=== PATIENT | female | born 1980 | race Caucasian/White ===

== ENCOUNTER 2018-07-01 12:49 | Emergency (ER) | payer SELFPAY ==
[~2018-07-01] VITALS: Ht 160 cm; Wt 72.6 kg
[2018-07-01 12:49] VITALS: BP 155/101
[2018-07-01] MEDS ORDERED: MORPHINE SULFATE 4 MG/ML VIAL. IV ONE (13:15)
[2018-07-01] MEDS ORDERED: ONDANSETRON PF 4 MG/2 ML VIAL. IV ONE (13:15)
[2018-07-01] MEDS ORDERED: IV NORMAL SALINE 1000ML BAG 1,000 ML IV ONE (13:15)
[2018-07-01 13:26] LABS: BILIRUBIN,URINE NEGATIVE (NEG); CLARITY,URINE CLEAR; COLOR,URINE YELLOW; NITRITE,URINE POSITIVE (NEG); PH,URINE 5.5; PROTEIN,URINE NEGATIVE (NEG-TRACE); UROBILINOGEN,URINE 0.2 mg/dL (0.2 mg/dL)
[2018-07-01 13:30] LABS: BASO # 0.1 x10^3/uL (0.0-0.2); BASO % 1 % (0-3); EOS # 0.2 x10^3/uL (0.0-0.7); EOS % 2 % (0-3); HEMATOCRIT 46.3 % (36.0-47.0); HEMOGLOBIN 15.4 g/dL (12.0-15.5); LYMPH # 2.1 x10^3/uL (1.0-4.8); LYMPH % 18 % (24-48); MEAN CORPUSCULAR HEMOGLOBIN 31 pg (25-35); MEAN CORPUSCULAR HGB CONC 33 g/dL (31-37); MEAN CORPUSCULAR VOLUME 92 fL (79-100); MONO # 0.8 x10^3/uL (0.0-1.1); MONO % 7 % (0-9); NEUT # 8.4 x10^3uL (1.8-7.7); NEUT % 72 % (31-73); PLATELET COUNT 275 x10^3/uL (140-400); RED BLOOD COUNT 5.01 x10^6/uL (3.50-5.40); RED CELL DISTRIBUTION WIDTH 14.2 % (11.5-14.5); WHITE BLOOD COUNT 11.7 x10^3/uL (4.0-11.0)
[2018-07-01 13:32] LABS: BARBITURATES NEG (NEG); BENZODIAZEPINES NEG (NEG); CANNABINOIDS NEG (NEG); COCAINE NEG (NEG); METHADONE NEG (NEG); OPIATES NEG (NEG); PHENCYCLIDINE NEG (NEG)
[2018-07-01 13:33] LABS: AMPHETAMINE/METHAMPHETAMINE POS (NEG)
[2018-07-01 13:34] LABS: BACTERIA,URINE MANY /HPF (0-FEW); SQUAMOUS EPITHELIAL CELL,UR MANY /LPF
[2018-07-01 13:39] LABS: CALCIUM 9.3 mg/dL (8.5-10.1); CREATININE 0.9 mg/dL (0.6-1.0); GFR 70.1; POTASSIUM 4.3 mmol/L (3.5-5.1)
[2018-07-01 13:45] LABS: ALBUMIN 3.5 g/dL (3.4-5.0); ALBUMIN/GLOBULIN RATIO 0.7 (1.0-1.7); TOTAL BILIRUBIN 0.2 mg/dL (0.2-1.0); TOTAL PROTEIN 8.2 g/dL (6.4-8.2)
[2018-07-01] MEDS ORDERED: CONTRAST GIVEN. MC PRN (14:00)
[2018-07-01] MEDS ORDERED: IOHEXOL 300 MG/ML 100ML VIAL. IV ONE (14:15)
--- NOTE | 2018-07-01 14:24 | PHYS DOC ---
Past Medical History Past Medical History: No Pertinent History, Hypertension Past Surgical History: Alcohol Use: None Drug Use: Other Adult General Chief Complaint Chief Complaint: ABDOMINAL PAIN HPI HPI Patient is a 37 year old female with a history of hypertension who presents to the ED today complaining of a sharp intermittent 7 out of 10 right-sided abdominal pain that began yesterday. Patient denies any vomiting. Denies any fever. Denies any chance she is . Review of Systems Review of Systems Constitutional: Denies fever or chills [] Eyes: Denies change in visual acuity, redness, or eye pain [] HENT: Denies nasal congestion or sore throat [] Respiratory: Denies cough or shortness of breath [] Cardiovascular: No additional information not addressed in HPI [] GI: Reports right lower quadrant abdominal pain, nausea, vomiting, bloody stools or diarrhea [] : Denies dysuria or hematuria [] Musculoskeletal: Denies back pain or joint pain [] Integument: Denies rash or skin lesions [] Neurologic: Denies headache, focal weakness or sensory changes [] All other systems were reviewed and found to be within normal limits, except as documented in this note. Current Medications Current Medications Current Medications Medications (Trade) Dose Ordered Sig/Zita Start Time Stop Time Status Last Admin Dose Admin Info (CONTRAST GIVEN -- Rx MONITORING) 1 each PRN DAILY PRN 07/01/18 14:00 07/03/18 13:59 Iohexol (Omnipaque 300 Mg/ml) 75 ml 1X ONCE 07/01/18 14:15 07/01/18 14:16 DC Morphine Sulfate (Morphine Sulfate) 4 mg 1X ONCE 07/01/18 13:15 07/01/18 13:16 DC 07/01/18 13:20 4 MG Ondansetron HCl (Zofran) 4 mg 1X ONCE 07/01/18 13:15 07/01/18 13:16 DC 07/01/18 13:19 4 MG Sodium Chloride 1,000 ml @ 1,000 mls/hr 1X ONCE 07/01/18 13:15 07/01/18 14:14 DC 07/01/18 13:19 1,000 MLS/HR Allergies Allergies Allergies Coded Allergies Type Severity Reaction Last Updated Verified No Known Drug Allergies 01/14/14 No Physical Exam Physical Exam Constitutional: Well developed, well nourished, no acute distress, non-toxic appearance. [] HENT: Normocephalic, atraumatic, bilateral external ears normal, oropharynx moist, no oral exudates, nose normal. [] Eyes: PERRLA, EOMI, conjunctiva normal, no discharge. [] Neck: Normal range of motion, no tenderness, supple, no stridor. [] Cardiovascular:Heart rate regular rhythm, no murmur [] Lungs & Thorax: Bilateral breath sounds clear to auscultation [] Abdomen: Bowel sounds normal, soft, no right upper quadrant tenderness, slight right lower quadrant tenderness, negative psoas sign, negative obturator sign, negative Rovsing sign, no guarding, no masses, no pulsatile masses. [] Skin: Warm, dry, no erythema, no rash. [] Back: No tenderness, no CVA tenderness. [] Extremities: No tenderness, no cyanosis, no clubbing, ROM intact, no edema. [] Neurologic: Alert and oriented X 3, normal motor function, normal sensory function, no focal deficits noted. [] Psychologic: Affect normal, judgement normal, mood normal. [] Current Patient Data Vital Signs Vital Signs Date Time Temp Pulse Resp B/P (MAP) Pulse Ox O2 Delivery O2 Flow Rate FiO2 07/01/18 13:20 19 97 Room Air 07/01/18 12:49 97.5 100 155/101 (119) 97.5 Lab Values Laboratory Tests Test 07/01/18 13:00 07/01/18 13:04 07/01/18 13:13 Urine Collection Type Unknown Urine Color Yellow Urine Clarity Clear Urine pH 5.5 Urine Specific Hope 1.025 Urine Protein Negative mg/dL (NEG-TRACE) Urine Glucose (UA) Negative mg/dL (NEG) Urine Ketones (Stick) Negative mg/dL (NEG) Urine Blood Negative (NEG) Urine Nitrite Positive (NEG) Urine Bilirubin Negative (NEG) Urine Urobilinogen Dipstick 0.2 mg/dL (0.2 mg/dL) Urine Leukocyte Esterase Trace (NEG) Urine RBC 1-2 /HPF (0-2) Urine WBC 11-20 /HPF (0-4) Urine Squamous Epithelial Cells Many /LPF Urine Bacteria Many /HPF (0-FEW) Urine Mucus Marked /LPF Urine Opiates Screen Neg (NEG) Urine Methadone Screen Neg (NEG) Urine Barbiturates Neg (NEG) Urine Phencyclidine Screen Neg (NEG) Urine Amphetamine/Methamphetamine Pos (NEG) Urine Benzodiazepines Screen Neg (NEG) Urine Cocaine Screen Neg (NEG) Urine Cannabinoids Screen Neg (NEG) Urine Ethyl Alcohol Neg (NEG) POC Urine HCG, Qualitative Hcg negative (Negative) White Blood Count 11.7 x10^3/uL (4.0-11.0) H Red Blood Count 5.01 x10^6/uL (3.50-5.40) Hemoglobin 15.4 g/dL (12.0-15.5) Hematocrit 46.3 % (36.0-47.0) Mean Corpuscular Volume 92 fL (79-100) Mean Corpuscular Hemoglobin 31 pg (25-35) Mean Corpuscular Hemoglobin Concent 33 g/dL (31-37) Red Cell Distribution Width 14.2 % (11.5-14.5) Platelet Count 275 x10^3/uL (140-400) Neutrophils (%) (Auto) 72 % (31-73) Lymphocytes (%) (Auto) 18 % (24-48) L Monocytes (%) (Auto) 7 % (0-9) Eosinophils (%) (Auto) 2 % (0-3) Basophils (%) (Auto) 1 % (0-3) Neutrophils # (Auto) 8.4 x10^3uL (1.8-7.7) H Lymphocytes # (Auto) 2.1 x10^3/uL (1.0-4.8) Monocytes # (Auto) 0.8 x10^3/uL (0.0-1.1) Eosinophils # (Auto) 0.2 x10^3/uL (0.0-0.7) Basophils # (Auto) 0.1 x10^3/uL (0.0-0.2) Sodium Level 140 mmol/L (136-145) Potassium Level 4.3 mmol/L (3.5-5.1) Chloride Level 104 mmol/L (98-107) Carbon Dioxide Level 25 mmol/L (21-32) Anion Gap 11 (6-14) Blood Urea Nitrogen 22 mg/dL (7-20) H Creatinine 0.9 mg/dL (0.6-1.0) Estimated GFR (Cockcroft-Gault) 70.1 BUN/Creatinine Ratio 24 (6-20) H Glucose Level 85 mg/dL (70-99) Calcium Level 9.3 mg/dL (8.5-10.1) Total Bilirubin 0.2 mg/dL (0.2-1.0) Aspartate Amino Transferase (AST) 14 U/L (15-37) L Alanine Aminotransferase (ALT) 18 U/L (14-59) Alkaline Phosphatase 106 U/L (46-116) Total Protein 8.2 g/dL (6.4-8.2) Albumin 3.5 g/dL (3.4-5.0) Albumin/Globulin Ratio 0.7 (1.0-1.7) L Lipase 125 U/L (73-393) Ethyl Alcohol Level < 10 mg/dL (0-10) Laboratory Tests 07/01/18 13:13 Laboratory Tests 07/01/18 13:13 EKG EKG [] Radiology/Procedures Radiology/Procedures [] Course & Med Decision Making Course & Med Decision Making Pertinent Labs and Imaging studies reviewed. (See chart for details) This is a 37-year-old male patient presenting to the ED today with right lower quadrant abdominal pain since yesterday. Patient signed out AMA before her workup was done. Patient is alert and oriented 4, able to make her own decisions. Risks of leaving AMA. Dragon Disclaimer Dragon Disclaimer This electronic medical record was generated, in whole or in part, using a voice recognition dictation system. Departure Departure Impression: Primary Impression: Abdominal pain Disposition: 07 AGAINST MEDICAL ADVICE Condition: STABLE Referrals: LACI DRISCOLL (PCP) Problem Qualifiers Primary Impression: Abdominal pain Abdominal location: right lower quadrant Qualified Codes: R10.31 - Right lower quadrant pain CELIADOMENICA ROGERS CATARINA Jul 01, 2018 14:24
--- NOTE | 2018-07-01 15:21 | RAD ---
PQRS Compliance Statement: One or more of the following individualized dose reduction techniques were utilized for this examination: 1. Automated exposure control 2. Adjustment of the mA and/or kV according to patient size 3. Use of iterative reconstruction technique CT abdomen/pelvis with contrast 07/01/2018 1:59 PM INDICATION: Right lower quadrant abdominal pain COMPARISON: CT abdomen/pelvis January 14, 2014 TECHNIQUE: Multiple axial CT images of the abdomen and pelvis were obtained after the intravenous administration of 75 mL Omnipaque 300. Coronal and sagittal reformats are provided. FINDINGS: There is bibasilar subsegmental atelectasis. Heart size is within normal limits. Liver, spleen, bilateral adrenal glands, pancreas and gallbladder are normal in appearance. The abdominal aorta is normal in course and caliber. There are no pathologically enlarged lymph nodes in the abdomen and pelvis. There is no abdominal free fluid. There is no free intraperitoneal air. The kidneys enhance symmetrically. 8 mm hypoattenuating lesion in the superior pole the right kidney may represent a simple cyst or angiomyolipoma (-30 Hounsfield units). This finding is too small to characterize. There is no hydronephrosis. There are no suspected calculi within the kidneys, ureters or urinary bladder. Small and large bowel are normal in caliber. There is no evidence for bowel obstruction. There are no pericolonic inflammatory changes. A normal, nondilated appendix is visualized without adjacent inflammatory changes. Tubal ligation clips are identified. Uterus is normal in appearance. Follicular changes are identified in the adnexa bilaterally. Right ovary measures 4.0 x 2 3.0 cm. Left ovary measures 4.7 x 4.0 cm. No significant free fluid is identified within the pelvis. No suspicious osseous abnormality is identified. There is moderate disc height loss at L5-S1 with vacuum disc phenomena. IMPRESSION: 1. No evidence for bowel obstruction or inflammation. Appendix is normal in appearance. 2. 8 mm hypoattenuating lesion in the superior pole the right kidney may represent a simple cyst or angiomyolipoma (-30 Hounsfield units). This finding is too small to characterize. Further characterization with renal ultrasound may be of benefit. 3. No evidence for obstructive uropathy. 4. Follicular changes are identified in the adnexa bilaterally. Electronically signed by: Sindy Nina MD (07/01/2018 3:19 PM) [id number]
== END 2018-07-01 19:18 | disposition left against medical advice (07) ==
LOC: ER 12:49
DX: R10.31 Right lower quadrant pain (principal); R11.2 Nausea with vomiting, unspecified; R19.7 Diarrhea, unspecified; K92.1 Melena; I10 Essential (primary) hypertension; Z98.890 Other specified postprocedural states
CPT/HCPCS: 36415; 74177; 80053; 80307; 81001; 81025; 83690; 85025; 87086; 87186; 96361; 96374; 96375; 99285; G0480; J2270; J2405; J7030; Q9967; 99284-25

== ENCOUNTER 2019-01-17 01:22 | Emergency (ER) | payer SELFPAY ==
[~2019-01-17] VITALS: Ht 170.2 cm; Wt 82.6 kg
[2019-01-17 02:12] VITALS: BP 170/80
[2019-01-17] MEDS ORDERED: HYDROcodone/APAP 5/325MG 1 TAB TABLET PO ONE (02:45)
[2019-01-17] MEDS ORDERED: HYDR-3164 PO (02:54)
--- NOTE | 2019-01-17 02:54 | PHYS DOC ---
Past Medical History Past Medical History: No Pertinent History Past Surgical History: Additional Information: /2 PPD Alcohol Use: Rarely Drug Use: None Adult General Chief Complaint Chief Complaint: FOOT INJURY PAIN HPI HPI Patient is a 38 year old [f__sex] who presents with [] Review of Systems Review of Systems Constitutional: Denies fever or chills [] Eyes: Denies change in visual acuity, redness, or eye pain [] HENT: Denies nasal congestion or sore throat [] Respiratory: Denies cough or shortness of breath [] Cardiovascular: No additional information not addressed in HPI [] GI: Denies abdominal pain, nausea, vomiting, bloody stools or diarrhea [] : Denies dysuria or hematuria [] Musculoskeletal: Denies back pain or joint pain [] Integument: Denies rash or skin lesions [] Neurologic: Denies headache, focal weakness or sensory changes [] Endocrine: Denies polyuria or polydipsia [] All other systems were reviewed and found to be within normal limits, except as documented in this note. Current Medications Current Medications Current Medications Medications (Trade) Dose Ordered Sig/Zita Start Time Stop Time Status Last Admin Dose Admin Acetaminophen/ Hydrocodone Bitart (Lortab 5/325) 1 tab 1X ONCE 01/17/19 02:45 01/17/19 02:46 DC 01/17/19 02:49 1 TAB Allergies Allergies Allergies Coded Allergies Type Severity Reaction Last Updated Verified No Known Drug Allergies 01/14/14 No Physical Exam Physical Exam Constitutional: Well developed, well nourished, no acute distress, non-toxic appearance. [] HENT: Normocephalic, atraumatic, bilateral external ears normal, oropharynx moist, no oral exudates, nose normal. [] Eyes: PERRLA, EOMI, conjunctiva normal, no discharge. [] Neck: Normal range of motion, no tenderness, supple, no stridor. [] Cardiovascular:Heart rate regular rhythm, no murmur [] Lungs & Thorax: Bilateral breath sounds clear to auscultation [] Abdomen: Bowel sounds normal, soft, no tenderness, no masses, no pulsatile masses. [] Skin: Warm, dry, no erythema, no rash. [] Back: No tenderness, no CVA tenderness. [] Extremities: No tenderness, no cyanosis, no clubbing, ROM intact, no edema. [] Neurologic: Alert and oriented X 3, normal motor function, normal sensory function, no focal deficits noted. [] Psychologic: Affect normal, judgement normal, mood normal. [] Current Patient Data Vital Signs Vital Signs Date Time Temp Pulse Resp B/P (MAP) Pulse Ox O2 Delivery O2 Flow Rate FiO2 01/17/19 02:49 20 Room Air 01/17/19 02:12 97.7 101 170/80 (110) 98 97.7 EKG EKG [] Radiology/Procedures Radiology/Procedures [] Course & Med Decision Making Course & Med Decision Making Pertinent Labs and Imaging studies reviewed. (See chart for details) [] Dragon Disclaimer Dragon Disclaimer This electronic medical record was generated, in whole or in part, using a voice recognition dictation system. Departure Departure Impression: Primary Impression: Foot contusion Disposition: HOME, SELF-CARE Condition: STABLE Referrals: LACI DRISCOLL (PCP) PAGE OLIVER II, MD Patient Instructions: Cast Shoe, Crutch Use, [id number], Foot Contusion, [id number] Scripts Hydrocodone/Apap 5-325 (NORCO 5-325 TABLET) 1 Each Tablet 0.5-1 TAB PO PRN Q6HRS PRN for PAIN, #10 TAB 0 Refills Prov: ANA MARIA EPSTEIN DO 01/17/19 Problem Qualifiers Primary Impression: Foot contusion Encounter type: initial encounter Laterality: right Qualified Codes: S90.31XA - Contusion of right foot, initial encounter ANA MARIA EPSTEIN DO Jan 17, 2019 02:54
--- NOTE | 2019-01-17 05:36 | RAD ---
Right foot 3 views. HISTORY: Pain, post blunt trauma 3 views were taken of the right foot. There is not evidence of an acute fracture. There is a bony erosion at the distal end of the proximal phalanx the great toe in a juxta-articular location, gout can have this pattern. There is no other acute osseous abnormality. IMPRESSION: 1. Bony erosion distal end of the proximal phalanx of the right great toe with soft tissue swelling, Gout is a possibility. 2. No fracture or other acute osseous abnormality. Electronically signed by: Sathya Chowdhury MD (01/17/2019 5:32 AM) [facility]
== END 2019-01-17 03:11 | disposition home or self-care (01) ==
LOC: ER 01:22
DX: S90.31XA Contusion of right foot, initial encounter (principal); F17.200 Nicotine dependence, unspecified, uncomplicated; W20.8XXA Other cause of strike by thrown, projected or falling object, initial encounter; Y93.89 Activity, other specified; Y92.89 Other specified places as the place of occurrence of the external cause; Y99.8 Other external cause status
CPT/HCPCS: 73630; 99284

== ENCOUNTER 2019-10-15 22:22 | Emergency (ER) | payer SELFPAY ==
[~2019-10-15] VITALS: Ht 177.8 cm; Wt 63.6 kg
[~2019-10-15 22:22] MED LIST: HYDR-3164 PO
--- NOTE | 2019-10-15 23:35 | RAD ---
EXAM: Sacrum coccyx DATE: 10/15/2019 10:39 PM COMPARISON: No prior INDICATION: Pain s/p fall FINDINGS: Dedicated AP and lateral views of the sacrum/coccyx are negative for acute or subacute fracture. Negative sacro-coccygeal dissociation. Negative SI joint diastasis or degenerative/proliferative changes. Grossly normal bone density. Moderate colonic stool content is seen. IMPRESSION: Normal dedicated views sacrum and coccyx. Electronically signed by: Santos Cespedes MD (10/15/2019 11:32 PM) [facility]
[2019-10-16] MEDS ORDERED: TRAM50TA PO (00:20)
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
[2019-10-16 00:30] VITALS: BP 120/76
== END 2019-10-16 00:30 | disposition home or self-care (01) ==
LOC: ER 22:22
DX: S39.92XA Unspecified injury of lower back, initial encounter (principal); F17.200 Nicotine dependence, unspecified, uncomplicated; V29.88XA Motorcycle rider (driver) (passenger) injured in other specified transport accidents, initial encounter; Y92.488 Other paved roadways as the place of occurrence of the external cause; Y93.89 Activity, other specified; Y99.8 Other external cause status
CPT/HCPCS: 72220; 99283

== ENCOUNTER 2020-05-14 00:34 | Emergency (ER) | payer SELFPAY ==
[~2020-05-14] VITALS: Ht 167.6 cm; Wt 88.6 kg
[~2020-05-14 00:34] MED LIST changes: +TRAM50TA PO
[2020-05-14 00:49] VITALS: BP 179/106
[2020-05-14] MEDS ORDERED: traMADol 50 MG TABLET ONE (01:05)
[2020-05-14] MEDS ORDERED: TRAM50TA PO (01:23)
--- NOTE | 2020-05-14 01:23 | PHYS DOC ---
Past Medical History Past Medical History: Hypertension Past Surgical History: , Tubal ligation Smoking Status: Current Every Day Smoker Additional Information: 0.5ppd Alcohol Use: None Drug Use: None General Adult EDM: Chief Complaint: ANKLE PROBLEM HPI: HPI: Patient is a 39 year old female presents with report of left ankle pain after fall off of porch. Patient reports occurred approximately 2 hours prior to arrival. Denies head trauma. Denies neck pain. Patient reports swelling and bruising to lateral aspect. Patient reports pain with ambulation or bearing weight. Denies numbness or tingling. Denies use of blood thinners. Denies other injury. Review of Systems: Review of Systems: Constitutional: Denies fever or chills Musculoskeletal: Reports left lateral ankle pain and swelling Integument: Reports bruising and swelling to left lateral ankle Neurologic: Denies headache, focal weakness or sensory changes Complete systems were reviewed and found to be within normal limits, except as documented in this note. Current Medications: Current Medications Medications (Trade) Dose Ordered Sig/Zita Start Time Stop Time Status Last Admin Dose Admin Tramadol HCl (Ultram) 50 mg STK-MED ONCE 05/14/20 01:05 05/14/20 01:05 DC Allergies: Allergies: Allergies Coded Allergies Type Severity Reaction Last Updated Verified No Known Drug Allergies 01/14/14 No Physical Exam: PE: Constitutional: Well developed, well nourished, no acute distress, non-toxic appearance HENT: Normocephalic, atraumatic Eyes: Conjunctiva normal, no discharge Neck: Normal range of motion, no tenderness, supple Lungs & Thorax: No respiratory distress, equal chest rise and fall Skin: Warm, dry, no erythema, no rash Extremities: Left lateral malleolar tenderness, anterior drawer negative, edema and ecchymosis noted to lateral malleolar area, DP and PT +2, CR < 2 sec Neurologic: Alert and oriented X 3, no focal deficits noted Psychologic: Affect normal, judgment normal Current Patient Data: Vital Signs: Vital Signs Date Time Temp Pulse Resp B/P (MAP) Pulse Ox O2 Delivery O2 Flow Rate FiO2 05/14/20 01:07 94 05/14/20 00:49 97.9 112 20 179/106 (130) Room Air 97.9 EKG: EKG: [] Radiology/Procedures: Radiology/Procedures: PROCEDURE: ANKLE LEFT 3V XR EXAM OF ANKLE_LEFT 3V 05/14/2020 1:18 AM INDICATION: Pain to the lateral malleolus. COMPARISON: None available. TECHNIQUE: 3 views of the left foot are provided. FINDINGS/ IMPRESSION: There is lateral soft tissue swelling. There is an obliquely oriented fracture involving the lateral malleolus with intra-articular extension to the ankle mortise. No disruption of the ankle mortise is identified, but stress views could be of benefit. Tibial plafond and talar dome. Intact. Calcaneus is intact. Electronically signed by: Sindy Nina MD (05/14/2020 1:24 AM) [facility] Course & Med Decision Making: Course & Med Decision Making Pertinent Imaging studies reviewed. (See chart for details) Patient presents with left ankle injury and swelling after mechanical fall off of a porch. Pain addressed. Ice applied. X-ray obtained with findings of nondisplaced distal fibular fracture. Avinash wrap and air splint applied. Crutches provided. Patient stable for discharge with outpatient follow-up with orthopedics. Orthopedic referral provided. Discussed findings and plan with patient, who acknowledges understanding and agreement. Carolyn Disclaimer: Carolyn Disclaimer: This electronic medical record was generated, in whole or in part, using a voice recognition dictation system. Splinting Splinting : Location: Left ankle Pre-Made Type: aircast (ankle) Pre-Proc Neuro Vasc Exam: normal Post-Proc Neuro Vasc Exam: normal, unchanged from pre-exam Departure Departure Impression: Primary Impression: Fracture of distal fibula Qualified Codes: S82.832A - Other fracture of upper and lower end of left fibula, initial encounter for closed fracture Disposition: 01 DC HOME SELF CARE/HOMELESS Condition: STABLE Referrals: NO PCP (PCP) TAMARA HOLDER MD Patient Instructions: Ankle Fracture, [id number], Crutch Use, [id number] Additional Instructions: ICE area 20 min on the leave off next 20 mins. Repeat as needed several times daily for next few days. Take over the counter Tylenol and/or Ibuprofen for pain or discomfort. Scripts Hydrocodone/Apap 5-325 (NORCO 5-325 TABLET) 1 Each Tablet 0.5-1 TAB PO PRN Q6HRS PRN for PAIN for 14 Days, TAB 0 Refills Prov: ANA MARIA EPSTEIN DO 05/14/20 ANA MARIA EPSTEIN DO May 14, 2020 01:23
[2020-05-14] MEDS ORDERED: KETOROLAC 30 MG/ML VIAL. ONE (01:26)
--- NOTE | 2020-05-14 01:26 | RAD ---
XR EXAM OF ANKLE_LEFT 3V 05/14/2020 1:18 AM INDICATION: Pain to the lateral malleolus. COMPARISON: None available. TECHNIQUE: 3 views of the left foot are provided. FINDINGS/ IMPRESSION: There is lateral soft tissue swelling. There is an obliquely oriented fracture involving the lateral malleolus with intra-articular extension to the ankle mortise. No disruption of the ankle mortise is identified, but stress views could be of benefit. Tibial plafond and talar dome. Intact. Calcaneus is intact. Electronically signed by: Sindy Nina MD (05/14/2020 1:24 AM) [facility]
[2020-05-14] MEDS ORDERED: traMADol 50 MG TABLET PO ONE (01:30)
[2020-05-14] MEDS ORDERED: HYDR-3164 PO (01:59)
[2020-05-14] MEDS ORDERED: KETOROLAC 30 MG/ML VIAL. IM ONE (02:00)
== END 2020-05-14 01:45 | disposition home or self-care (01) ==
LOC: ER 00:34
DX: S82.832A Other fracture of upper and lower end of left fibula, initial encounter for closed fracture (principal); R60.0 Localized edema; I10 Essential (primary) hypertension; F17.200 Nicotine dependence, unspecified, uncomplicated; Z98.890 Other specified postprocedural states; Z98.51 Tubal ligation status; W18.39XA Other fall on same level, initial encounter; Y93.89 Activity, other specified; Y92.89 Other specified places as the place of occurrence of the external cause; Y99.8 Other external cause status
CPT/HCPCS: 73610; 96372; 99283; J1885; L4350

== ENCOUNTER 2021-01-12 17:59 | Emergency (ER) | payer MEDICAID ==
[~2021-01-12] VITALS: Ht 170.2 cm; Wt 86.0 kg
--- NOTE | 2021-01-12 19:29 | PHYS DOC ---
Past Medical History Past Medical History: Hypertension Past Surgical History: , Tubal ligation Smoking Status: Current Every Day Smoker Alcohol Use: None Drug Use: None General Adult EDM: Chief Complaint: ANKLE PROBLEM HPI: HPI: Patient is a 40 year old female who present to ER for evaluation of right ankle injury. Patient said she was walking downstairs last night, she slipped and twisted her right ankle. Patient has been able to walk but with lot of pain in her right ankle. Patient denies any pain in her right foot or right knee. Patient denies any head or neck injury, denies any back pain. Review of Systems: Review of Systems: Constitutional: Denies fever or chills. [] Eyes: Denies change in visual acuity. [] HENT: Denies nasal congestion or sore throat. [] Respiratory: Denies cough or shortness of breath. [] Cardiovascular: Denies chest pain or edema. [] GI: Denies abdominal pain, nausea, vomiting, bloody stools or diarrhea. [] : Denies dysuria. [] Musculoskeletal: Positive for right ankle pain and swelling Integument: Denies rash. [] Neurologic: Denies headache, focal weakness or sensory changes. [] Endocrine: Denies polyuria or polydipsia. [] Lymphatic: Denies swollen glands. [] Psychiatric: Denies depression or anxiety. [] Heart Score: C/O Chest Pain: N/A Risk Factors: Risk Factors: DM, Current or recent (<one month) smoker, HTN, HLP, family history of CAD, obesity. Risk Scores: Score 0 - 3: 2.5% MACE over next 6 weeks - Discharge Home Score 4 - 6: 20.3% MACE over next 6 weeks - Admit for Clinical Observation Score 7 - 10: 72.7% MACE over next 6 weeks - Early Invasive Strategies Allergies: Allergies: Allergies Coded Allergies Type Severity Reaction Last Updated Verified No Known Drug Allergies 01/14/14 No Physical Exam: PE: Constitutional: Well developed, well nourished, no acute distress, non-toxic appearance. [] HENT: Normocephalic, atraumatic, bilateral external ears normal, oropharynx moist, no oral exudates, nose normal. [] Eyes: PERRLA, EOMI, conjunctiva normal, no discharge. [] Neck: Normal range of motion, no tenderness, supple, no stridor. [] Cardiovascular:Heart rate regular rhythm, no murmur [] Lungs & Thorax: Bilateral breath sounds clear to auscultation [] Abdomen: Bowel sounds normal, soft, no tenderness, no masses, no pulsatile masses. [] Skin: Warm, dry, no erythema, no rash. [] Back: No tenderness, no CVA tenderness. [] Extremities: right ankle is swelling, tender to palpation, no pain on right foot or right knee. Neurologic: Alert and oriented X 3, normal motor function, normal sensory function, no focal deficits noted. [] Psychologic: Affect normal, judgement normal, mood normal. [] Current Patient Data: Labs: Laboratory Tests Test 01/12/21 19:18 POC Urine HCG, Qualitative Hcg negative (Negative) EKG: EKG: [] Radiology/Procedures: Radiology/Procedures: [][facility] [address] [place] [address] IMAGING REPORT Signed PATIENT: GERMAIN TOWNSEND ACCOUNT: [id number] : 1980 LOCATION: ER AGE: 40 SEX: F EXAM STATUS: REG ER ORD. PHYSICIAN: CHAGO CARLISLE DO REASON: fell, right ankle injured PROCEDURE: ANKLE RIGHT 3V EXAMINATION: Right ankle radiograph. VIEWS: 3 COMPARISON: None INDICATION:40 years, Female, fell, right ankle injury. FINDINGS: No acute fracture, dislocation or subluxation. Ankle mortise and talar dome are intact. There is small well-corticated osseous structure adjacent to the lateral malleolus, likely representing calcification versus old chip fracture. diffuse soft tissue swelling about the ankle, particularly about the lateral malleolus. Small amount of ankle joint effusion. IMPRESSION: No acute osseous process. Diffuse soft tissue swelling about the ankle. Electronically signed by: Candace Hallman MD (01/12/2021 8:04 PM) [facility] DICTATED and SIGNED BY: CANDACE HALLMAN MD DATE: 01/12/[id number] 0 Course & Med Decision Making: Course & Med Decision Making Pertinent Labs and Imaging studies reviewed. (See chart for details) Patient is a 40-year-old female who present to ER due to right ankle injury, x- ray did not show any fracture or dislocation. A walking boot was applied to her right foot and ankle. Patient will be discharged home with pain medication Dragon Disclaimer: Carolyn Disclaimer: This electronic medical record was generated, in whole or in part, using a voice recognition dictation system. Departure Departure Impression: Primary Impression: Right ankle sprain Disposition: HOME / SELF CARE / HOMELESS Condition: STABLE Referrals: NO PCP (PCP) FOLLOW UP WITH YOUR FAMILY DOCTOR THIS WEEK FOR REEVALUATION Patient Instructions: Ankle Sprain, Acute, with Phase I Rehab-SportsMed Additional Instructions: Thank you for visiting our Emergency Department. We appreciate you trusting us with your care. If any additional problems come up don't hesitate to return to visit us. Please follow up with your primary care provider so they can plan additional care if needed and know about the problem that you had. If symptoms worsen come back to the Emergency Department. Any concerning symptoms that start such as chest pain, shortness of air, weakness or numbness on one side of the body, running high fevers or any other concerning symptoms return to the ER. Scripts Tramadol Hcl (TRAMADOL HCL) 50 Mg Tablet 50 MG PO Q6HRS PRN for PAIN, #15 TAB Prov: CHAGO CARLISLE DO 01/12/21 CHAGO CARLISLE DO Jan 12, 2021 19:29
--- NOTE | 2021-01-12 20:07 | RAD ---
EXAMINATION: Right ankle radiograph. VIEWS: 3 COMPARISON: None INDICATION:40 years, Female, fell, right ankle injury. FINDINGS: No acute fracture, dislocation or subluxation. Ankle mortise and talar dome are intact. There is smal l well-corticated osseous structure adjacent to the lateral malleolus, likely representing calcificat ion versus old chip fracture. diffuse soft tissue swelling about the ankle, particularly about the la teral malleolus. Small amount of ankle joint effusion. IMPRESSION: No acute osseous process. Diffuse soft tissue swelling about the ankle. Electronically signed by: Farzad Hallman MD (01/12/2021 8:04 PM) [facility]
[2021-01-12 20:24] VITALS: BP 202/105
[2021-01-12] MEDS ORDERED: HYDROcodone/APAP 5/325MG 1 TAB TABLET PO ONE (20:30)
[2021-01-12] MEDS ORDERED: TRAM50TA PO (21:00)
== END 2021-01-12 21:07 | disposition home or self-care (01) ==
LOC: ER 17:59
DX: S93.401A Sprain of unspecified ligament of right ankle, initial encounter (principal); I10 Essential (primary) hypertension; F17.200 Nicotine dependence, unspecified, uncomplicated; W01.0XXA Fall on same level from slipping, tripping and stumbling without subsequent striking against object, initial encounter; Y93.01 Activity, walking, marching and hiking; Y92.89 Other specified places as the place of occurrence of the external cause; Y99.8 Other external cause status
CPT/HCPCS: 73610; 81025; 99283

== ENCOUNTER 2021-09-15 10:37 | Emergency (ER) | payer MEDICAID ==
[~2021-09-15] VITALS: Ht 170.2 cm; Wt 88.5 kg
[2021-09-15 11:00] VITALS: BP 205/103
[2021-09-15] MEDS ORDERED: PENI500T PO (11:40)
--- NOTE | 2021-09-15 11:40 | PHYS DOC ---
Past Medical History Past Medical History: Hypertension Past Surgical History: No Surgical History Smoking Status: Current Every Day Smoker Alcohol Use: None Drug Use: None General Adult EDM: Chief Complaint: DENTAL PROBLEM HPI: HPI: Patient is a 41 year old female presents with dental pain. History of chipped tooth in the right upper molar region past several years. She states that the kind of fell off on their own. States that for the last couple of days her face has become swollen and she has had significant pain in that area. Denies any changes in her voice or any pustular drainage. Denies any antibiotic allergies. Review of Systems: Review of Systems: Constitutional: Denies fever or chills. [] Eyes: Denies change in visual acuity. [] HENT: Right upper jaw pain Respiratory: Denies cough or shortness of breath. [] Cardiovascular: Denies chest pain or edema. [] GI: Denies abdominal pain, nausea, vomiting, bloody stools or diarrhea. [] : Denies dysuria. [] Musculoskeletal: Denies back pain or joint pain. [] Integument: Denies rash. [] Neurologic: Denies headache, focal weakness or sensory changes. [] Endocrine: Denies polyuria or polydipsia. [] Lymphatic: Denies swollen glands. [] Psychiatric: Denies depression or anxiety. [] Heart Score: C/O Chest Pain: No Risk Factors: Risk Factors: DM, Current or recent (<one month) smoker, HTN, HLP, family history of CAD, obesity. Risk Scores: Score 0 - 3: 2.5% MACE over next 6 weeks - Discharge Home Score 4 - 6: 20.3% MACE over next 6 weeks - Admit for Clinical Observation Score 7 - 10: 72.7% MACE over next 6 weeks - Early Invasive Strategies Allergies: Allergies: Allergies Coded Allergies Type Severity Reaction Last Updated Verified No Known Drug Allergies 01/14/14 No Physical Exam: PE: Constitutional: Well developed, well nourished, no acute distress, non-toxic appearance. [] HENT: Multiple broken teeth noted in the right upper jaw Eyes: PERRLA, EOMI, conjunctiva normal, no discharge. [] Neck: Normal range of motion, no tenderness, supple, no stridor. [] Cardiovascular:Heart rate regular rhythm, no murmur [] Lungs & Thorax: Bilateral breath sounds clear to auscultation [] Abdomen: Bowel sounds normal, soft, no tenderness, no masses, no pulsatile masses. [] Skin: Warm, dry, no erythema, no rash. [] Back: No tenderness, no CVA tenderness. [] Extremities: No tenderness, no cyanosis, no clubbing, ROM intact, no edema. [] Neurologic: Alert and oriented X 3, normal motor function, normal sensory function, no focal deficits noted. [] Psychologic: Affect normal, judgement normal, mood normal. [] Current Patient Data: Vital Signs: Vital Signs Date Time Temp Pulse Resp B/P (MAP) Pulse Ox O2 Delivery O2 Flow Rate FiO2 09/15/21 11:00 98.5 79 18 205/103 (137) 97 Room Air 98.5 EKG: EKG: [] Radiology/Procedures: Radiology/Procedures: [] Course & Med Decision Making: Course & Med Decision Making Pertinent Labs and Imaging studies reviewed. (See chart for details) [] Dragon Disclaimer: Dragon Disclaimer: This electronic medical record was generated, in whole or in part, using a voice recognition dictation system. Departure Departure Impression: Primary Impression: Dental caries Disposition: HOME / SELF CARE / HOMELESS Condition: STABLE Referrals: NO PCP (PCP) Patient Instructions: Dental Caries Scripts Penicillin V Potassium (PENICILLIN V POTASSIUM) 500 Mg Tablet 1 TAB PO BID for 10 Days, #20 TAB 0 Refills Prov: INDIA VILLEGAS MD 09/15/21 INDIA VILLEGAS MD September 15, 2021 11:40
== END 2021-09-15 11:40 | disposition home or self-care (01) ==
LOC: ER 10:37
DX: K02.9 Dental caries, unspecified (principal); I10 Essential (primary) hypertension; F17.200 Nicotine dependence, unspecified, uncomplicated
CPT/HCPCS: 99283